=== PATIENT | male | born 1960 | race Caucasian/White ===

== ENCOUNTER 2020-02-21 01:39 | Outpatient (CLI) | payer BC, SELFPAY ==
[2020-02-21 20:39] LABS: SARS-CoV-2 RNA PCR Negative
== END 2020-02-21 01:40 | disposition home or self-care (01) ==
LOC: ANHCOVIDDT 01:39
PROVIDERS: PCP Internal Medicine; Visit Provider Internal Medicine Gastroenterology
DX: Z01.818 Encounter for other preprocedural examination (principal); Z20.828 Contact with and (suspected) exposure to other viral communicable diseases
CPT/HCPCS: 87635; C9803; U0003

== ENCOUNTER 2020-02-24 01:16 | Day surgery (SDC) | payer BC, SELFPAY ==
[2020-02-18 13:46] VITALS: BMI 22.8
--- NOTE | 2020-02-24 06:39 | WPDANESEPPF ---
Anes - Initial Pre Proc Eval Procedure: Operation Date: 02/24/20 08:30 Proposed Procedures p Screening Colonoscopy - Brenden Palacios DO Date/Time: 02/24/20 06:39 Surgeon: Brenden Palacios DO Pre Op Diagnosis: neoplasm screening Patient Data Age: 59 Gender: M Height: 1.75 m Weight: 70 kg Allergies Allergy/AdvReac Type Severity Reaction Status Date / Time No Known Allergies Allergy Verified 02/24/20 06:56 Home Medications Medication Instructions Recorded Confirmed Type No Home Medications 02/18/20 02/18/20 History Patient hx anesthesia problems: none Family hx anesthesia problems: none PMFSH Past Medical History Medical History (Updated 02/24/20 @ 06:39 by Trey Aldridge MD) Tobacco abuse Social History Social History Smoking packs per day: 0.5 Smoking cigarettes per day: 10.0 Years smoked: 20 Smoking pack-years: 10.00 Smoking status: Current every day smoker Tobacco type: cigarettes Substance use type: does not use Living arrangements: with family Spiritual care concerns: No Anes - Eval Final PreProcedure Day of Procedure 02/24/20 06:39 Patient weight: normal Heart: regular rate and rhythm Lungs: clear to auscultation and normal air movement Airway: Mallampati scale class II Neurological: alert and oriented Last oral intake: >/= 8 hours ASA classification: II Emergent: no Anesthetic plan: proceed Anesthesia type and monitoring: general GIVS Informed Consent: The patient's anesthetic plan and its attendant risks and benefits were discussed with the patient/family/POA. Questions were solicited and answers provided to the satisfaction of the patient/family/POA.
[2020-02-24 06:58] VITALS: BP 105/87; PULSE 70; RESP 17; TEMP 36.8; O2SAT 100; BMI 21.3
[2020-02-24] MEDS: LACTATED RINGERS 1,000 ML 150 ML IV CONT (07:08)
--- NOTE | 2020-02-24 07:49 | PM.IMHP ---
H&P: HPI History of Present Illness Date/Time: 02/24/20 07:49 Chief complaint: neoplasm screening Narrative: Reason for visit is colonoscopy. This very pleasant gentleman was seen in consultation request of the primary physician. Impression: Screening and surveillance colonoscopy. The patient has a history of adenomatous colon polyps. Recommendation: Colonoscopy. History: This very pleasant gentleman is here for screening and surveillance colonoscopy. His GI review systems negative. Has a history adenomatous colon polyps. Last colonoscopy was 5 years ago. Physical examination: General: very pleasant patient in no acute distress. HEENT: Head was normocephalic sclerae is clear mouth without masses neck was supple. Heart: Rate rhythm regular without S3 or S4. Lungs: CTA. Abdomen: Soft with no guarding or rigidity. Bowel sounds were active. Neurologic: Cranial nerves 2 through 12 intact. No focal defects. No clonus. Musculoskeletal system: Revealed no joint tenderness or swelling no muscle atrophy. Extremities: Reveal no significant edema. Skin: Warm and dry with normal turgor. Mental status: intact. Patient is alert and oriented. Review of Systems Review of Systems: All systems reviewed & are unremarkable except as noted in HPI and below PMFSH Past Medical History Medical History (Updated 02/24/20 @ 07:48 by Brenden Palacios DO) Adenomatous colon polyp Tobacco abuse Surgical History Surgical History (Updated 02/24/20 @ 07:48 by Brenden Palacios DO) H/O colonoscopy Social History Social History Smoking packs per day: 0.5 Smoking cigarettes per day: 10.0 Years smoked: 20 Smoking pack-years: 10.00 Smoking status: Current every day smoker Tobacco type: cigarettes Substance use type: does not use Living arrangements: with family Spiritual care concerns: No Meds Home Medications and Allergies Home Medications Medication Instructions Recorded Confirmed Type No Home Medications 02/18/20 02/18/20 History Allergies Allergy/AdvReac Type Severity Reaction Status Date / Time No Known Allergies Allergy Verified 02/24/20 06:56 Vital Signs Vital Signs - 24 hr 02/24/20 06:58 Temperature 36.8 C Pulse Rate 70 Respiratory Rate 17 Blood Pressure 105/87 Pulse Oximetry 100
[2020-02-24] MEDS: SIMETHICONE ORAL SUSPENSION 20 MG/0.3 ML 30 ML BOTTLE 0.6 ML IRRIGATION (08:04)
[2020-02-24 08:18] VITALS: BP 122/46; PULSE 54; RESP 33; O2SAT 98
[2020-02-24 08:28] VITALS: BP 105/44; PULSE 53; RESP 20; O2SAT 93
[2020-02-24 08:38] VITALS: BP 114/47; PULSE 53; RESP 20; O2SAT 96
--- NOTE | 2020-02-24 08:55 | SUR.PHASEII ---
Awaiting pt ride home
== END 2020-02-24 09:09 | disposition home or self-care (01) ==
PROVIDERS: PCP Internal Medicine; Visit Provider Internal Medicine Gastroenterology
PROC: 0DJD8ZZ Inspection of Lower Intestinal Tract, Via Natural or Artificial Opening Endoscopic (ICD-10-PCS; CPT 45378; principal; 2020-02-24 08:30)
DX: Z12.11 Encounter for screening for malignant neoplasm of colon (principal); K64.8 Other hemorrhoids; K62.89 Other specified diseases of anus and rectum; F17.210 Nicotine dependence, cigarettes, uncomplicated
CPT/HCPCS: 45378; J2001; J2704; J7120

== ENCOUNTER → 2021-05-25 03:37 | Outpatient (CLI) | payer BC, SELFPAY ==
[2021-05-25 12:14] LABS: SARS-CoV-2 RNA PCR Negative
== END ==
PROVIDERS: PCP Internal Medicine; Visit Provider Surgery
DX: Z01.812 Encounter for preprocedural laboratory examination (principal); Z20.822 Contact with and (suspected) exposure to COVID-19
CPT/HCPCS: C9803; U0003; U0005

== ENCOUNTER 2021-05-28 01:19 | Day surgery (SDC) | payer BC, SELFPAY ==
[2021-05-17 14:01] VITALS: BMI 21.1
--- NOTE | 2021-05-28 08:02 | WPDANESEPPF ---
Anes - Initial Pre Proc Eval Procedure: Operation Date: 05/28/21 12:00 Proposed Procedures p Excision of Perianal Lesion - Sreekanth Thomson DO Date/Time: 05/28/21 08:02 Surgeon: Sreekanth Thomson DO Pre Op Diagnosis: anal lesion (1.5cm) Patient Data Age: 60 Gender: M Height: 1.75 m Weight: 65 kg Allergies Allergy/AdvReac Type Severity Reaction Status Date / Time No Known Allergies Allergy Verified 05/28/21 10:01 Home Medications Medication Instructions Recorded Confirmed Type vit C,E,zinc,copper-lokxd3d 250 1 cap PO DAILY 03/14/20 05/28/21 History mg-lutein 5 mg-zeaxanthin 1 mg capsule Patient hx anesthesia problems: none Family hx anesthesia problems: none Results Review: All pre-operative results and documents have been reviewed as part of the pre-operative evaluation. [facility] Past Medical History Medical History Adenomatous colon polyp Tobacco abuse Surgical History Surgical History H/O colonoscopy H/O right inguinal hernia repair 25 years ago done at [facility] History of surgery on arm Nerve release of right arm. 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 Informed Consent: The patient's anesthetic plan and its attendant risks and benefits were discussed with the patient/family/POA. Questions were solicited and answers provided to the satisfaction of the patient/family/POA.
[2021-05-28] MEDS: LACTATED RINGERS 1,000 ML 30 ML IV CONT (10:32)
[2021-05-28 10:51] VITALS: BP 138/39; PULSE 43; RESP 16; TEMP 36.7; O2SAT 100
--- NOTE | 2021-05-28 11:49 | WPDHPUPDATE1 ---
History and Physical Update Update Date/Time: 05/28/21 11:49 History and Physical has been reviewed, including an updated exam of the patient. There are NO changes in the patient's condition. Risks, benefits, and alternatives have been discussed and questions answered. Patient agrees to proceed with procedure.
[2021-05-28] MEDS: ceFAZolin 2 GM/D5W 50 ML 2 GM/50 ML BAG IVPB (12:08)
[2021-05-28] MEDS: BUPIVACAINE/EPINEPHRINE 0.5% 30 ML VIAL 10 ML INFILTRATE (12:33)
[2021-05-28 12:44] VITALS: BP 113/41; PULSE 48; RESP 16; O2SAT 99
--- NOTE | 2021-05-28 13:00 | P.OP_ITS ---
Procedure Note - Detailed Date of Procedure 05/28/21 Pre-op Diagnosis anal lesion (1.5cm) Post-op Diagnosis same Procedure Performed Excision 1.5cm anal skin lesion Rectal exam under anesthesia Surgeon Sreekanth Thomson, DO Anesthesia MAC and local (0.5% bupivicaine with epi) Indications This is a 60-year-old man who presented with an anal skin lesion. He has noticed this there for the past couple years. It was gradually enlarging, but over the past several weeks it seems to of gone down in size. He denies any pain in the area. He denies any redness or bleeding. Discussions were made with the patient about treatment options and decision was made to proceed with excision of the anal skin lesion. Findings On perianal exam, patient was found to have a right posterior anal skin lesion measuring about 1.5 cm. There was no evidence of thrombosed external hemorrhoids. The skin lesion appeared redundant with a residual hemorrhoid skin tag and was possibly a lipoma. An elliptical incision was made to excise the skin lesion. The specimen was sent to the lab for pathology. Careful perianal exam and anal rectal exam was performed and no other abnormalities were noted. Description of Procedure Procedure as wellAs risks, benefits, and alternatives were discussed with the patient. Written consent was obtained and placed in chart prior to procedure. Patient was brought back to surgical suite. He was placed supine on operating table. Time-out was done to confirm patient and procedure. He was then repositioned into dorsal lithotomy position in stirrups. IV sedation was administered by the anesthesia department. His perirectal region was prepped and draped in sterile fashion using Betadine prep. Digital rectal exam was initially performed. 0.5% bupivacaine with epinephrine was then infiltrated locally around the anal skin lesion in the right posterior region. A 15 blade scalpel was then used to make an elliptical incision around the skin lesion and sharply excise the skin lesion using the 15 blade scalpel. The lesion was completely excised and sent to the lab for pathology. Hemostasis was then achieved with electrocautery. The lesion went right up to the anal verge, but did not appear to be advancing up into the anal rectal canal. The skin edges were reapproximated using 3-0 chromic simple interrupted sutures. A Bryon- Springer anoscope was then inserted in the anorectal canal was carefully inspected. Hemostasis appeared adequate no other abnormalities were noted. The anoscope was then removed. Xeroform gauze was applied over the incision followed by fluff gauze and mesh underwear. Patient was then awakened from anesthesia and transferred to recovery. Estimated Blood Loss -5.0 Pathology yes ( Anal skin lesion) Complications No immediate complications Condition stable Disposition same day
[2021-05-28 13:10] VITALS: BP 139/53; PULSE 46; RESP 14; O2SAT 96
[2021-05-28 13:40] VITALS: BP 129/48; PULSE 49; RESP 16; O2SAT 98
== END 2021-05-28 13:57 | disposition home or self-care (01) ==
PROVIDERS: PCP Internal Medicine; Visit Provider Surgery
PROC: (CPT 46040; principal; 2021-05-28 12:00)
DX: K62.89 Other specified diseases of anus and rectum (principal); F17.210 Nicotine dependence, cigarettes, uncomplicated
CPT/HCPCS: 46922; 88304; 88305; A9270; C9803; J0690; J1100; J2250; J2405; J2704; J3010; J7120; U0003; U0005

== ENCOUNTER 2024-10-14 08:42 | Outpatient (CLI) | payer BC, SELFPAY ==
--- NOTE | ~2024-10-14 | MMUS_ITS ---
EXAMINATION: MM diagnostic marie LT w angel, US breast LT limited HISTORY: Left breast mass TECHNIQUE: 3-D tomosynthesis images of the left breast were performed and synthetic 2-D images were g enerated. CAD analysis was submitted and interpreted. High resolution limited left breast ultrasound was performed. COMPARISON: None BREAST PARENCHYMAL COMPOSITION:Not Dense. The breasts are almost entirely fatty FINDINGS: MAMMOGRAPHIC FINDINGS: There is a 1.9 cm mass in the immediate left subareolar breast with cutaneous is a calcific lesion is present. ULTRASOUND: There is a 2.3 x 2.0 x 3.3 cm mass in the immediate left subareolar breast with heterogeneous, somewh at lobulated or irregular borders, but overall wider than tall. IMPRESSION: 3.3 cm subareolar left breast mass, indeterminate. This is suspicious, and biopsy is recommended to establish histologic diagnosis. BI-RADS category 4, suspicious findings. Reviewed, dictated and finalized at [facility]. IMPRESSION: 3.3 cm subareolar left breast mass, indeterminate. This is suspicious, and bio psy is recommended to establish histologic diagnosis. BI-RADS category 4, suspicious findings.
== END 2024-10-14 08:43 | disposition home or self-care (01) ==
LOC: MICIMG 08:43
PROVIDERS: PCP Internal Medicine; Visit Provider Internal Medicine
DX: N63.42 Unspecified lump in left breast, subareolar (principal)
CPT/HCPCS: 76642; 77061; 77065; G0279

== ENCOUNTER 2024-11-15 11:11 | Outpatient (CLI) | payer BC, SELFPAY ==
--- OUTSIDE RECORDS SUMMARY | 2024-11-15 11:38 | XMS_ITS | Clinical Summary ---
Author Organization [facility] Address [address], [facility] [address] [place] [address] Phone Care Team Providers Care User Experience Team Lead Name Role Phone Victor M Miller MD Primary Care Provider [phone] Social History Tobacco Use Types Packs/Day Years Used Date Smoking Tobacco: Never Assessed Sex and Gender Information Value Date Recorded Sex Assigned at Not on file Legal Sex Male 11:48 PM CDT Gender Identity Not on file Sexual Orientation Not on file Plan of Treatment Health Maintenance Due Date Last Done Comments Hepatitis C Virus (HCV) Screening 1960 TdaP Immunization 1960 Cologuard 12/04/2007 Immunochemical Fecal Occult Blood 12/04/2007 Pneumococcal Immunization (5 0+ years) (1 of 1 - PCV) 2012 Zoster Immunization (1 of 2) 2012 SARS-COV-2 Immunization ( - season) 2023 Influenza Immunization (#1) 2024 Colonoscopy 02/23/2027 02/24/2020 Colorectal Cancer Screening 02/23/2027 Respiratory Syncytial Virus (RSV) Immunization (Adult) (1 - 1-dose 75+ series) 2037 Hepatitis B Immunization Aged Out No longer eligible based on patient's age to complete this topic Human Papillomavirus (HPV) Immunization Aged Out No longer eligible b ased on patient's age to complete this topic Meningococcal Immunization (ACWY) Aged Out No longer eligible based on patient's age to complete this topic Rotavirus Immunization Aged Out No lo nger eligible based on patient's age to complete this topic Procedures Procedure Name Priority Date/Time Associated Diagnosis Comments COLONOSCOPY Routine 02/24/2020 from Last 3 Months or Most Recently Relevant to Health Maintenance Results * COLONOSCOPY (02/24/2020) Brenden Palacios DO PROCEDURE/MINOR SURGICAL ORDERA BLES Final Result from Last 3 Months or Most Recently Relevant to Health Maintenance Insurance [facility] Care Teams User Experience Team Lead Relationship Specialty Start Date End Date Victor M Miller MD [address] [place] [address] PCP - General Internal Medicine 01/19/20
== END 2024-11-15 11:12 | disposition home or self-care (01) ==
PROVIDERS: PCP Nurse Practitioner; Visit Provider Surgery
DX: N63.20 Unspecified lump in the left breast, unspecified quadrant (principal); Z01.818 Encounter for other preprocedural examination
CPT/HCPCS: 36415; 86850; 86900; 86901

== ENCOUNTER 2024-11-22 02:14 | Day surgery (SDC) | payer BC, SELFPAY ==
--- NOTE | 2024-11-10 13:06 | PC.NURSE ---
Report to the Outpatient Waiting Room, entrance under the green pavilion located off [facility], at time ___1000__ on date 11/22/24_. Planned Procedure Time: __1200_.? Time changes happen often and if your time is changed the preop area will call you the afternoon before. - You and your visitor will be asked to self-screen and do not enter if you have any COVID symptoms. Please call surgeon if you need to reschedule. - A mask is optional within the hospital at this time. Patients may have clear liquids (water, carbonated beverages, clear teas, apple juice) until 3 hours prior to surgery with a maximum of 20 ounces. - No food from midnight until time of surgery and no smoking, or chewing tobacco (or any form of nicotine). No chewing gum, candy or mints. - Infants may have breast milk until 4 hours before surgery, infant formula 6 hours prior to surgery. - Children will be allowed to drink immediately following surgery.? If applicable, please bring a bottle or sippy cup to assist with drinking. Juice, water, soda, and popsicles are readily available.? For infants on formula, please bring formula the day of surgery.? Pacifiers are allowed. Take only the following medications with a SIP of water on the morning of surgery: __NONE DO NOT STOP ANY OF YOUR OTHER PRESCRIPTION MEDICATIONS PRIOR TO SURGERY EXCEPT THE FOLLOWING Hold all vitamins and supplements for 3 days per anesthesiologist. Medications to discontinue per physician Date to take last dose Please no make-up, nail mexican, hairspray, perfume, deodorant, or body powder the day of surgery.? No jewelry (including any body piercings) or valuables the day of surgery, leave them at home.? Please take a shower or bath the night before, or the morning of, surgery with HIBICLENS antibacterial soap.? Wear comfortable, loose fitting clothing.? Children are encouraged to wear pajamas. - Jewelry must be removed prior to entering the operating room.? Rings and piercings that are not removed may be cut off. - The hospital will not accept responsibility for valuables.? - Please leave all valuables, including medications, at home the day of surgery. If you are going home after surgery, a licensed transit bus driver must drive you home.? - NO public transportation without another adult if you receive anesthesia. - We recommend that an adult stay with you for 24 hours following discharge. - We also recommend that you do not drive, make important decision, drink alcoholic beverages, or take any drugs that were not prescribed by your health care provider for at least 24 hours after your discharge time. For Pediatric surgeries, we recommend two adults accompany the child home. Follow any additional instructions given to you from your surgeon. Telephone instructions given TO PATIENT_and asked if any additional questions and then verbalized understanding. Patient advised to call surgeon office or pre surgery nurse liaison [phone] if any additional questions.
[2024-11-10 13:13] VITALS: BMI 22.8
[2024-11-22] VITALS (8 sets, daily range): BP systolic 128–147; BP diastolic 46–60; PULSE 42–63; RESP 14–18; TEMP 36.9; O2SAT 97–100; BMI 21.5
--- NOTE | ~2024-11-22 | NM_ITS ---
EXAMINATION: NM sentinel node inject only DATE: 11/22/2024 12:00 INDICATION: Left breast cancer TECHNIQUE: 1.15 mCi Tc-99m filtered sulfur colloid was injected in 4 aliquots along the margins of th e areola at the 12:00, 3:00, 6:00 and 9:00 positions. No images were obtained. IMPRESSION: 1. Successful left breast sentinel lymph node radiopharmaceutical injection. Reviewed, dictated and finalized at location A.
--- OUTSIDE RECORDS SUMMARY | 2024-11-22 02:17 | XMS_ITS | Clinical Summary ---
Author Organization [facility] Address [address], [facility] [address] [place] [address] Phone Care Team Providers Care Customer Support Executive Name Role Phone Victor M Miller MD Primary Care Provider [phone] Social History Tobacco Use Types Packs/Day Years [...] Immunization (1 of 2) 2012 SARS-COV-2 Immunization (1 - season) 2023 Influenza Immunization (#1) 2024 [...] Most Recently Relevant to Health Maintenance Insurance [facility] Care Teams Customer Support Executive Relationship Specialty Start Date End Date Victor M Miller MD [address] [place] [address] PCP - General Internal Medicine 01/19/20
--- OUTSIDE RECORDS SUMMARY | 2024-11-22 02:17 | XMS_ITS | Continuity of Care Document ---
Author Organization [facility] Address [address] [place] [address] ut[address] [facility] [address] [place] [address] Phone Care Team Providers Care Satellite Project Site Monitor Name Role Phone Troy Martin MD, FACS Unavailable Unavailab le Advance Directives Directive Yes / No Effective Date File Name No Information Encounters Encounter Description Practice Location Reason(s) For Visit Diagnoses Date Provider Providers Copied on Encounter [facility], [address], [place], [place], [id number], [place] tel:[phone] [facility] Professional No Information [address]. [address], [address], [place], [place], [id number], [place]. tel:[phone] Family History Family Member Type Diagnosis Age At Onset No Information Payers Payer name Insurance type Covered republican ID Authoriza tion(s) No Information Social History Type Description Quantity Date Captured Comments Sex Male Smoking Status No Information Chief Complaint And Reason For Visit No Information Reason For Referral Reason For Referral No Information History Of Present Illness Encounter Date Complaint History Of Prese nt Illness No Information Functional Status Date Functional Assessmen t No Information Instructions Date Instruction Additional Infor mation No Information Assessments Type Assessment Date No Information Patient Care Teams Name Effective Dates (start - stop) Status Members No Information
--- NOTE | 2024-11-22 10:14 | ECG_ITS ---
Test Date: 2024-11-22 10:26:57 Measurements Intervals [place] Rate: 39 P: 76 WI: 164 QRS: 66 QRSD: 97 T: 42 QT: 442 QTc: 359 Interpretive Statements SINUS BRADYCARDIA WITH SINUS ARRHYTHMIA POSSIBLE LEFT ATRIAL ENLARGEMENT INCOMPLETE RIGHT BUNDLE BRANCH BLOCK PEAKED T WAVES- CONSIDER HYPERKALEMIA ABNORMAL ECG No previous ECG available for comparison Electronically Signed On 11-22-2024 10:36:40 CDT by Chicho Robbins D.O.
[2024-11-22] MEDS: LACTATED RINGERS 1,000 ML 30 ML IV CONT (11:00)
[2024-11-22] MEDS: KETOROLAC 15 MG/ML VIAL (*BKC) IV PUSH (11:05)
[2024-11-22] MEDS: ACETAMINOPHEN 500 MG TABLET 1000 MG PO (11:05)
--- NOTE | 2024-11-22 11:58 | WPDANESEPPF ---
Anes - Initial Pre Proc Eval Procedure: Operation Date: 11/22/24 12:00 Proposed Procedures p Left Breast Simple Mastectomy with Toutle Node Biopsy - Sreekanth Thomson DO Date/Time: 11/22/24 11:58 Surgeon: Sreekanth Thomson DO Pre Op Diagnosis: Left Breast Ca Patient Data Age: 63 Gender: M Height: 1.75 m Weight: 66.15 kg Last Vital Signs Temp 98.4 F 11/22/24 10:00 Pulse 42 L 11/22/24 10:00 Resp 14 11/22/24 10:00 BP 140/48 L 11/22/24 10:00 Pulse Ox 100 11/22/24 10:00 Allergies Allergy/AdvReac Type Severity Reaction Status Date / Time No Known Allergies Allergy Verified 11/22/24 11:30 Home Medications ?Medication ?Instructions ?Recorded ?Confirmed ?Type ascorbate calcium (vitamin C) 500 500 mg PO DAILY 11/28/21 11/22/24 History mg tablet biotin 1,000 mcg chewable tablet 1,000 mcg PO DAILY 08/16/22 11/22/24 History vit C 250 mg-vit E 200 unit-zinc 1 cap PO DAILY 08/16/22 11/22/24 History ox 12.5 rt-dsvpgk-kdxlde-zeax capsule (ICaps AREDS2) omega 0-wux-jkb-fish oil 300 1 cap PO DAILY 02/20/23 11/22/24 History mg-1,000 mg capsule (Fish Oil) Patient hx anesthesia problems: none Family hx anesthesia problems: none Results Review: All pre-operative results and documents have been reviewed as part of the pre-operative evaluation. [facility] Past Medical History Medical History Adenomatous colon polyp Tobacco abuse Surgical History Surgical History History of excision of lesion 1.5 cm perianal lesion 05/28/21 History of surgery on arm Nerve release of right arm. 15 years ago done at [facility] H/O right inguinal hernia repair 25 years ago done at [facility] H/O colonoscopy Family History Family History Grandparent Cerebrovascular accident Father Lung cancer Heart disease Cerebrovascular accident Diabetes mellitus Social History Social History Smoking packs per day: 1 Smoking cigarettes per day: 20.0 Years smoked: 30 Smoking pack-years: 30.00 Smoking status: Current every day smoker Tobacco type: cigarettes Additional smoking assessment comments: CUTTING BACK ON SMOKING Alcohol intake: current Drinks per week: 1 Substance use type: does not use Lack of Transportation: No Lack of Food: Never True Current Housing: I Have Housing Concerned About Future Housing: No Difficulty Paying Gas/Electric Bills: No Difficulty Paying for Meds: No Currently Unemployed: No Education: High School Diploma/GED Difficulty w/ Childcare or Family Care: No Living arrangements: with family Occupation/Education: occupation 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 ) Neurological: alert and oriented Last oral intake: >/= 8 hours ASA classification: II Emergent: no Anesthetic plan: proceed Anesthesia type and monitoring: general LMA and standard monitoring Results Review: All pre-operative results and documents have been reviewed as part of the pre-operative evaluation. Current smoker, 1 ppd or slightly less for 30 years. 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 Pt reports that he has been told he had a murmur as a child/infant but his dad says it never limited his activity. Informed Consent: The patient's anesthetic plan and its attendant risks and benefits were discussed with the patient/family/POA. Questions were solicited and answers provided to the satisfaction of the patient/family/POA.
--- NOTE | 2024-11-22 12:26 | P.HP_ITS ---
H&P: HPI History of Present Illness Date/Time: 11/22/24 12:26 Chief Complaint: Left breast cancer Narrative: 63 yo man presents for mastectomy. He recently had a biopsy performed in the office which showed evidence of left breast carcinoma. Review of Systems Review of Systems: All systems reviewed & are unremarkable except as noted in HPI and below Constitutional: Constitutional: Denies chills, Denies fever(s), Denies headache(s) and Denies weight loss Eyes: Eyes: Denies change in vision ENT: Denies dizziness, Denies headache(s), Denies neck mass and Denies throat swelling Cardiovascular: Cardiovascular: Denies chest pain, Denies lightheadedness and Denies dyspnea Respiratory: Respiratory: Denies cough, Denies dyspnea and Denies wheezing Gastrointestinal: Gastrointestinal: Denies abdominal pain, Denies change in bowel habits, Denies nausea and Denies vomiting Genitourinary: Genitourinary: Denies hematuria and Denies dysuria Musculoskeletal: Musculoskeletal: Reports as per HPI Integumentary/Breasts: Skin/Breast: Reports as per HPI Neurologic: Denies dizziness and Denies headache(s) Allergic/Immunologic: Allergic/Immunologic: Denies throat swelling and Denies wheezing PMFSH Past Medical History Medical History Adenomatous colon polyp Tobacco abuse Surgical History Surgical History History of excision of lesion 1.5 cm perianal lesion 05/28/21 History of surgery on arm Nerve release of right arm. 15 years ago done at [facility] H/O right inguinal hernia repair 25 years ago done at [facility] H/O colonoscopy Family History Family History Grandparent Cerebrovascular accident Father Lung cancer Heart disease Cerebrovascular accident Diabetes mellitus Social History Social History Smoking packs per day: 1 Smoking cigarettes per day: 20.0 Years smoked: 30 Smoking pack-years: 30.00 Smoking status: Current every day smoker Tobacco type: cigarettes Additional smoking assessment comments: CUTTING BACK ON SMOKING Alcohol intake: current Drinks per week: 1 Substance use type: does not use Lack of Transportation: No Lack of Food: Never True Current Housing: I Have Housing Concerned About Future Housing: No Difficulty Paying Gas/Electric Bills: No Difficulty Paying for Meds: No Currently Unemployed: No Education: High School Diploma/GED Difficulty w/ Childcare or Family Care: No Living arrangements: with family Occupation/Education: occupation Additional occupation/education comments: [employer] Spiritual care concerns: No Meds Home Medications and Allergies Home Medications ?Medication ?Instructions ?Recorded ?Confirmed ?Type ascorbate calcium (vitamin C) 500 500 mg PO DAILY 11/28/21 11/22/24 History mg tablet biotin 1,000 mcg chewable tablet 1,000 mcg PO DAILY 08/16/22 11/22/24 History vit C 250 mg-vit E 200 unit-zinc 1 cap PO DAILY 08/16/22 11/22/24 History ox 12.5 bi-mlmjmh-lrnhkr-zeax capsule (ICaps AREDS2) omega 5-kod-zpr-fish oil 300 1 cap PO DAILY 02/20/23 11/22/24 History mg-1,000 mg capsule (Fish Oil) Allergies Allergy/AdvReac Type Severity Reaction Status Date / Time No Known Allergies Allergy Verified 11/22/24 11:30 Vital Signs Vital Signs - 24 hr 11/22/24 10:00 Temperature 98.4 F Pulse Rate 42 L Respiratory Rate 14 Blood Pressure 140/48 L Pulse Oximetry 100 Exam Const: General: no acute distress and alert Orientation/consciousness: patient oriented x3 HENMT: Head: normocephalic and atraumatic Ears: hearing grossly normal bilaterally Face/Nose/Sinus: Normal nares present Mouth: Yes Normal oral and palatal mucosa present Eyes: Periorbital: periorbital findings normal Sclera: sclerae normal EOM: EOMs intact bilaterally Neck: Neck: normal visual inspection, no lymphadenopathy and trachea midline Chest: Chest palpation & inspection: normal inspection of the chest Other: Left brease mass Resp: Effort & Inspection: normal respiratory effort Auscultation: clear to auscultation bilaterally Cardio: Jugular venous distension: no JVD Rate: regular rate Rhythm: regular rhythm Heart sounds: S1 normal heart sound present and S2 normal heart sound present Peripheral pulses: Peripheral pulses 2+ throughout GI: Inspection: normal to inspection GI Palp: Yes Soft to palpation, No Tenderness to palpation present (GI), No Guarding due to palpation present (GI) and No Rebound tenderness present Percussion: Yes normal to percussion Auscultation: normal bowel sounds : General: Yes no CVA tenderness Back/Spine/Pelvis: Back: no CVA tenderness Neuro: General: patient oriented x3, no focal motor deficits and CN's II-XI intact bilaterally Cognition (Neuro): normal cognition Speech: normal speech Motor exam (neuro): 5/5 motor strength present throughout Extrem: General: capillary refill normal and no clubbing, cyanosis or edema Assessment and Plan Assessment and plan (1) Cancer of left male breast : Code(s): C50.922 - Malignant neoplasm of unspecified site of left male breast Status: Acute Assessment and Plan: I have recommended left simple mastectomy with sentinel lymph node biopsy. I have discussed the procedure, risks, benefits, and alternatives with the patient. All questions answered. No changes since last seen in office.
--- NOTE | 2024-11-22 12:28 | WPDHPUPDATE1 ---
History and Physical Update Update Date/Time: 11/22/24 12:28 History and Physical has been reviewed, including an updated exam of the patient. There are NO changes in the patient's condition. Risks, benefits, and alternatives have been discussed and questions answered. Patient agrees to proceed with procedure.
[2024-11-22] MEDS: ceFAZolin 2 GM in SODIUM CHLORIDE 0.9% IV 50 ML 100 ML IVPB (12:50)
[2024-11-22] MEDS: BUPIVACAINE/EPINEPHRINE 0.5% 50 ML VIAL 30 ML INFILTRATE (13:11)
--- NOTE | 2024-11-22 13:17 | S_PTH ---
PATIENT: Filemon Esposito LOC: [facility] U#:[id number] AGE/SX: 63/M ROOM: RE11/22/[address]: Sreekanth Thomson DO : 1960 BED: DIS: 11/22/2024 SPEC #: [id number] RECD: 11/22/24 13:42 STATUS: GABY REQ #: [id number] QUINTON: 11/22/24 13:[address]: Sreekanth Thomson DEPT: [facility] Surgical RECD BY: Sandra Tran ENTERED: 11/22/24 13:42 SP TYPE: Surgical OTHR DR: Hyacinth Lorenz, FUNDS TRANSFER CLERK Tissues: A - Breast Mastectomy B - Sentinal Lymph Node C - Sentinal Lymph Node Procedures: Fonseca Keratin Hematoxylin and Eosin Stain Gross and Microscopic Level 5 ER-60 IN-60 MIB-60 HER 2-60
[2024-11-22] MEDS: ISOSULFAN BLUE 1% INJ 5 ML VIAL SUB-Q (13:52)
--- NOTE | 2024-11-22 14:07 | W.PM.PROC2 ---
Procedure Note - Detailed Date of Procedure 11/22/24 Pre-op Diagnosis Left Breast Cancer Post-op Diagnosis Same Procedure Performed Left simple mastectomy with left axillary sentinel lymph node biopsy Surgeon Sreekanth Thomson, DO Anesthesia General and Local (0.5% bupivacaine with epinephrine) Indications This is a 63-year-old man who presented with a recent finding of a left breast mass and biopsies confirmed ductal carcinoma. He had noticed the mass over the past few months and mammogram and ultrasound were ordered by his PCP. Findings showed evidence of a suspicious mass in the subareolar region. This was easily palpable and was biopsied in the office with a core needle biopsy device. Discussions were made with the patient about treatment options and decision was made to proceed with left simple mastectomy with sentinel lymph node biopsy. Findings Left simple mastectomy with sentinel lymph node biopsy was performed. The patient received injection of the nuclear isotope preoperatively and then also isosulfan blue in the periareolar region preoperatively. The left simple mastectomy was performed followed by the sentinel lymph node biopsy. There were 2 areas of significant uptake of the radiotracer using the [place] probe. Two lymph nodes were identified in these 2 locations and both lymph nodes were removed and sent as sentinel lymph nodes. There was minimal uptake within the wound bed after these 2 lymph nodes were removed. The highest uptake of the 1st lymph node was around 2200 and the 2nd lymph node was around 1100. The background uptake after removing these 2 lymph nodes was only around 20-40. Description of Procedure Procedure as well as risks, benefits, and alternatives were discussed with the patient. Written consent was obtained and placed in chart prior to procedure. Patient was brought back to surgical suite. He was placed supine on operating table. Time-out was done to confirm patient and procedure. He was then intubated by the anesthesia department. His left chest and axillary region was prepped and draped in sterile fashion using chlorhexidine prep. An elliptical incision was made around the nipple areola complex extending medially towards the sternum and laterally towards the axillary tail. Electrocautery was then used for hemostasis and for dissection through the subcutaneous tissue. Once the breast tissue was encountered I then began creating a skin flap cephalad and caudad using electrocautery. Care was taken to extend the skin flap to the upper and lower most portions of the breast tissue. I then continued the dissection medially and laterally to encompass the entire breast. Breast tissue was then carefully lifted off of the pectoralis muscle along with the pectoral fascia using electrocautery. The specimen was completely removed and was then marked with a short suture superior and long suture lateral. It was then sent to the lab for pathology. The wound bed was then inspected and hemostasis appeared adequate. The deep dermis was then reapproximated using 3-0 Vicryl inverted interrupted sutures. The skin was then approximated using 4-0 Monocryl running subcuticular suture. Exofin glue was then applied on top. I then moved my attention over to the left axillary region. The Neoprobe was used to identify the increased nuclear uptake in the left axillary region. A 4 cm transverse incision was made directly over this region using a 15 blade scalpel. Electrocautery was then used for hemostasis and for dissection through the subcutaneous tissue and through the clavipectoral fascia. Once the deep axillary contents were encountered I then identified an area of blue dye within the axillary contents. The Neoprobe was used to confirm that this was an area of increased uptake as well. The lymph node was then carefully isolated and dissected free using electrocautery. It was then completely excised using electrocautery. It was then sent as sentinel lymph node 1. The wound bed was then inspected again, there appeared to be another area of increased uptake with the Neoprobe an area of blue dye. This corresponded to another lymph node which was carefully at identified and excised with electrocautery. After removing the 2nd lymph node, there did not appear to be any other significant uptake using the Neoprobe. Wound bed was then inspected and hemostasis was achieved with electrocautery. 0.5% bupivacaine with epinephrine was infiltrated locally at each of the incisions. The axillary skin was then reapproximated using 4-0 Monocryl running subcuticular suture. Exofin glue was then applied on top. The patient was then awakened from anesthesia, extubated, and transferred to recovery. Estimated Blood Loss 10 Pathology Yes ( left breast marked with short suture superior and long suture lateral, sentinel lymph node x2) Complications No immediate complications Condition Stable Disposition Same day [facility] Billing Surgery - Charge Forward: Surgery Billing
--- NOTE | 2024-11-22 16:18 | SUR.PHASEII ---
1602: RN called Dr. Thomson and clarified dressing instructions. He said okay to remove dressing in 48 hours and no further dressings needed at that time.
== END 2024-11-22 16:07 | disposition home or self-care (01) ==
PROVIDERS: PCP Nurse Practitioner; Visit Provider Surgery
PROC: (CPT 19303; principal; 2024-11-22 12:00)
DX: C50.922 Malignant neoplasm of unspecified site of left male breast (principal); F17.210 Nicotine dependence, cigarettes, uncomplicated; I45.10 Unspecified right bundle-branch block; R94.31 Abnormal electrocardiogram [ECG] [EKG]; Z98.890 Other specified postprocedural states; Z86.0100 Personal history of colon polyps, unspecified; Z80.1 Family history of malignant neoplasm of trachea, bronchus and lung; Z82.49 Family history of ischemic heart disease and other diseases of the circulatory system
CPT/HCPCS: 19303; 38525; 38792; 88307; 88342; 88360; 93005; J0690; A9270; A9520; J1100; J1885; J2003; J2250; J2270; J2405; J2704; J3010; J7120